=== PATIENT | male | born 1950 | race Caucasian/White ===

== ENCOUNTER 2017-09-07 08:39 | Emergency (ER) | payer OTHER ==
[2017-09-07 09:19] VITALS: BMI 26.3
[2017-09-07] MEDS ORDERED: ACETAMINOPHEN 325 MG TABLET (FP) PO ONE (10:50)
[2017-09-07] MEDS ORDERED: ACETAMINOPHEN 325 MG TABLET (FP) ONE (10:51)
--- NOTE | 2017-09-07 11:03 | PDOC ---
History of Present Illness - General Chief Complaint: SIRS, Suspected/Possible Stated Complaint: FLU LIKE SYMPTOMS Time Seen by Provider: 09/07/17 10:49 History Source: Patient Exam Limitations: No Limitations - History of Present Illness Initial Comments: CHIEF COMPLAINT: 67 y/o febrile, tachycardic male with PMH HTN c/o body aches, fever, nasal congestion and cough x 2 days. HISTORY OF PRESENT ILLNESS: The patient has been taking theraflu and advil with little relief, both of which he took yesterday. He hasn't taken any medication today. He also states he did not take his BP medication today. He denies earache, sore throat, n/v/d, CP, SOB, abd pain. Vital signs on arrival are notable for pulse of 111 secondary to temp of 101.8. BP elevated. REVIEW OF SYSTEMS: GENERAL/CONSTITUTIONAL: +fever to 101 and chills. +body aches. . No weakness. No weight change. HEAD, EYES, EARS, NOSE AND THROAT: +nasal congestion. No change in vision. No ear pain or discharge. No sore throat. CARDIOVASCULAR: No chest pain or shortness of breath. RESPIRATORY: +cough. No wheezing or hemoptysis. GASTROINTESTINAL: No abd pain, nausea, vomiting, diarrhea. GENITOURINARY: No dysuria, frequency, or change in urination. MUSCULOSKELETAL: No joint or muscle swelling or pain. No neck or back pain. SKIN: No rash or easy bruising. NEUROLOGIC: No headache, vertigo, loss of consciousness, or loss of sensation. PHYSICAL EXAM: GENERAL: The patient is awake, alert, and fully oriented, non toxic but ill appearing. HEAD: Normal with no signs of trauma. ENT: Pupils equal, round and reactive to light, extraocular movements intact, sclera anicteric, conjunctiva injected b/l. Neck supple. Nasal congestion. LUNGS: Clear to auscultation bilaterally. Normal excursion. No respiratory distress or use of accessory muscles. CV: RRR, S1/S2, no MRG. Cap refill < 2 sec. ABDOMEN: Soft, non-distended, non-tender even to deep palpation, no hepatomegaly or splenomegaly, no masses. EXTREMITIES: Normal range of motion, no edema. NEUROLOGICAL: Normal speech, normal gait. CN II-XII grossly intact. PSYCH: Normal mood, normal affect. SKIN: Warm to touch. Warm, dry, normal turgor, no rashes or lesions noted. Past History - Past Medical History Allergies/Adverse Reactions: Allergies Allergy/AdvReac Type Severity Reaction Status Date / Time hydrocodone Allergy Verified 03/24/16 11:32 morphine Allergy Rash Verified 03/24/16 11:32 Home Medications: Ambulatory Orders Amlodipine Besylate [Norvasc -] 10 mg PO DAILY 03/24/16 Diazepam [Valium] 2 mg PO TID PRN #10 tablet MDD 3 03/24/16 Tramadol HCl 50 mg PO BID PRN #10 tablet MDD 2 03/24/16 Oseltamivir Phosphate [Tamiflu -] 75 mg PO BID #10 capsule 09/07/17 COPD: No HTN: Yes Hypercholesterolemia: Yes Kidney Stones: Yes - Surgical History Abdominal Surgery: Yes (ABD STOMACH TUMOR) - Suicide/Smoking/Psychosocial Hx Smoking Status: Yes Smoking History: Former smoker Have you smoked in the past 12 months: No Number of Cigarettes Smoked Daily: 0 If you are a former smoker, when did you quit?: 35 YRS AGO Information on smoking cessation initiated: No Hx Alcohol Use: No Drug/Substance Use Hx: No Substance Use Type: None *Physical Exam - Vital Signs Last Vital Signs Temp Pulse Resp BP Pulse Ox 101.8 F H 111 H 20 153/101 97 09/07/17 09:17 09/07/17 09:17 09/07/17 09:17 09/07/17 09:17 09/07/17 09:17 ED Treatment Course - Medications Given in the ED: ED Medications Discontinued Medications Generic Name Dose Route Start Last Admin Trade Name Willa PRN Reason Stop Dose Admin Acetaminophen 975 mg 09/07/17 10:50 09/07/17 10:52 Tylenol - PO 09/07/17 10:51 975 mg ONCE ONE Administration Medical Decision Making - Medical Decision Making A/P: 67 y/o male with symptoms of the flu. Plan is as follows: 1. PO tylenol 2. Influenza Influenza A - positive The patient was given his results. Will send rx for tamiflu. Vital signs improved. Instructed him to take 650mg of tylenol every 4 hours for fever, drink plenty of fluids, get lots of rest and return to the ER with any worsening or concerning symptoms. Patient was also instructed to take his BP medication when he gets home. The patient verbalizes understanding of all instructions, has no further questions and is awaiting discharge. *DC/Admit/Observation/Transfer Diagnosis at time of Disposition: Influenza A - Discharge Dispostion Disposition: HOME Condition at time of disposition: Improved - Prescriptions Prescriptions: Oseltamivir Phosphate [Tamiflu -] 75 mg PO BID #10 capsule - Referrals Referrals: Ponce Steve MD [Primary Care Provider] - Call tomorrow - Patient Instructions Printed Discharge Instructions: DI for Influenza -- Adult Additional Instructions: Discharge Instructions: -You have the flu -A prescription has been called to your pharmacy -Please take 650mg of over the counter Tylenol every 4 hours for fever -Drink plenty of liquids -Get lots of rest -Return to the ER with any worsening or concerning symptoms Instrucciones de descarga: -Usted tiene la gripe -Zahraa receta tolbert sido llamada a villa farmacia - Nolic 650 mg de Tylenol sin receta cada 4 horas para la fiebre -Judy muchos lquidos -Descansa mucho -Volver a la pawel de urgencias con cualquier empeoramiento o sntomas - Post Discharge Activity
[2017-09-07 11:44] VITALS: BP 120/86; PULSE 108; TEMP 100
== END 2017-09-07 11:44 | disposition home or self-care (01) ==
LOC: JER 08:39 → JERFT 08:39
DX: J09.X2 Influenza due to identified novel influenza A virus with other respiratory manifestations (principal)
CPT/HCPCS: 87804; 99281-25

== ENCOUNTER 2019-09-20 11:06 | Emergency (ER) | payer OTHER ==
[2019-09-20 11:33] VITALS: TEMP 98.3; BMI 26.6
--- NOTE | 2019-09-20 11:49 | PDOC ---
History of Present Illness - General Chief Complaint: Ingestion Stated Complaint: INGESTION/ANTI FREEZE Time Seen by Provider: 09/20/19 11:27 History Source: Patient Exam Limitations: No Limitations - History of Present Illness Initial Comments: 09/20/19 11:47 Bryson Matson is a 69M with PMH HTN, benign stomach tumor resection presenting with accidental anti-freeze ingestion. Presents with at bedside. Reports that he has two containers of antifreeze at home for some reason, one filled with water and one filled with 50/50 [employer] antifreeze, and these are located relatively close to each other. Today mistakenly took a swig from the antifreeze container, says about a shot glass worth, and swallowed it completely. Tried to make himself vomit but was unsuccessful, drank a few glasses of water without issue. Currently says that his throat hurts a little, but is able to speak and swallow without issues, denies vision changes. No other complaints. Denies history of renal or cardiac disease, no other PMH other than HTN. Denies SI/HI, purely accidental ingestion. Past History - Past Medical History Allergies/Adverse Reactions: Allergies Allergy/AdvReac Type Severity Reaction Status Date / Time hydrocodone Allergy Verified 09/20/19 11:09 morphine Allergy Rash Verified 09/20/19 11:09 Home Medications: Ambulatory Orders Unobtainable 09/20/19 COPD: No HTN: Yes Hypercholesterolemia: Yes Kidney Stones: Yes - Surgical History Abdominal Surgery: Yes (ABD STOMACH TUMOR) - Psycho Social/Smoking Cessation Hx Smoking Status: Yes Smoking History: Unknown if ever smoked Have you smoked in the past 12 months: No Number of Cigarettes Smoked Daily: 0 If you are a former smoker, when did you quit?: 35 YRS AGO Hx Alcohol Use: No Drug/Substance Use Hx: No Substance Use Type: None Review of Systems - Review of Systems Able to Perform ROS?: Yes Constitutional: No: Chills, Fever HEENTM: Yes: Throat Pain. No: Eye Pain, Blurred Vision, Nose Pain, Throat Swelling, Mouth Pain, Difficulty Swallowing, Mouth Swelling Respiratory: No: Cough, Shortness of Breath, Productive cough, Hemoptysis Cardiac (ROS): No: Chest Pain, Edema, Irregular Heart Rate, Lightheadedness, Palpitations, Syncope, Chest Tightness ABD/GI: No: Constipated, Diarrhea, Difficulty Swallowing, Nausea, Poor Appetite , Poor Fluid Intake, Vomiting : No: Burning, Dysuria, Discharge, Frequency, Flank Pain, Hematuria, Incontinence, Pain Musculoskeletal: No: Symptoms Reported Integumentary: No: Symptoms Reported Neurological: No: Symptoms reported Endocrine: No: Symptoms Reported Hematologic/Lymphatic: No: Symptoms Reported All Other Systems: Reviewed and Negative *Physical Exam - Vital Signs Last Vital Signs Temp Pulse Resp BP Pulse Ox 98.3 F 72 18 151/86 96 09/20/19 11:15 09/20/19 11:15 09/20/19 11:15 09/20/19 11:15 09/20/19 11:15 - Physical Exam General Appearance: Yes: Nourished, Appropriately Dressed. No: Apparent Distress, Alcohol on Breath, Intoxicated HEENT: positive: EOMI, TERRENCE, Normal Voice, Symmetrical, Pharynx Normal, Hearing Grossly Normal, Other (oropharynx moist and without mucosal lawson or oral lesions, airway patent). negative: Scleral Icterus (R), Scleral Icterus (L), Muffled/Hoarse voice, Pharyngeal Erythema, Tonsillar Exudate, Tonsillar Erythema Neck: positive: Tender (L anterior neck), Trachea midline, Normal Thyroid, Supple. negative: Rigid, Decreased range of motion, Lymphadenopathy (R), Lymphadenopathy (L), Tender lateral, Tender midline Respiratory/Chest: positive: Lungs Clear, Normal Breath Sounds. negative: Chest Tender, Respiratory Distress, Accessory Muscle Use, Labored Respiration, Crackles, Rales, Rhonchi, Stridor, Wheezing Cardiovascular: positive: Regular Rhythm, Regular Rate. negative: Murmur Gastrointestinal/Abdominal: positive: Normal Bowel Sounds, Flat, Soft. negative : Tender, Organomegaly, Pulsatile Mass, Guarding, Rebound Musculoskeletal: positive: Normal Inspection. negative: CVA Tenderness, Decreased Range of Motion, Vertebral Tenderness Extremity: positive: Normal Capillary Refill, Normal Inspection, Normal Range of Motion, Pelvis Stable. negative: Tender Integumentary: positive: Normal Color, Dry, Warm Neurologic: positive: grinder lap II-XII NML intact, Fully Oriented, Alert, Normal Mood/ Affect, Normal Response, Motor Strength 5/5. negative: Sensory Deficit ED Treatment Course - LABORATORY CBC & Chemistry Diagram: 09/20/19 17:00 09/20/19 17:00 Medical Decision Making - Medical Decision Making 09/20/19 12:56 Patient has PMH HTN presenting with accidental antifreeze ingestion. Poison Control called by triage nurse Janes, recommend 6-8 hours observation with labs , Ca, VBG, no restrictions on PO intake. Patient airway patent, low suspicion of airway compromise. VS stable. - CBC for eval infection - CMP for eval lytes, Cr, Ca - VBG - UA for eval urine Giving water for oral hydration, tolerating well. 09/20/19 16:02 Labs notable for: - CMP WNL - CBC WNL - UA 2+ blood, low concern for renal damage but noted, can f/u urology and PMD Per Poison Control recommendation, will observe until 5PM at the 6 hour rush. 09/20/19 18:40 Repeat labs ordered: - CMP WNL, no AGAP - CBC WNL - VBG pH 7.42, no acidosis - serum osm 304, gap 7 Stable for be discharged home with PMD f/u. Discharge - Discharge Information Problems reviewed: Yes Clinical Impression/Diagnosis: Antifreeze poisoning Qualifiers: Encounter type: initial encounter Injury intent: accidental or unintentional Qualified Code(s): T65.91XA - Toxic effect of unspecified substance, accidental (unintentional), initial encounter Condition: Stable Disposition: HOME - Follow up/Referral Referrals: Ponce Steve MD [Primary Care Provider] - Phillip Engel MD [Staff Physician] - - Patient Discharge Instructions Patient Printed Discharge Instructions: DI for Accidental Ingestion -- Adult Additional Instructions: Today you were evaluated for accidentally ingesting antifreeze. We have observed you for 6 hours without incident. Your labs and urine do now show any disease as a result of the ingestion. At home, do not drink any more antifreeze. Follow-up with your primary doctor in the next 3 days for further care. Your urine shows some blood even though you have no symptoms, please see your primary doctor and also a referral to a urologist has been given. If you experience changes to your vision, have new back pain, feel weak, have pain in your throat or have any other new or concerning symptoms, please return to the emergency room. - Post Discharge Activity
[2019-09-20 12:09] LABS: BASO % 1.2 % (0-2.0); EOS % 1.5 % (0-4.5); HEMATOCRIT 46.7 % (35.4-49); HEMOGLOBIN 15.6 GM/dL (11.7-16.9); LYMPH % 29.6 % (8-40); MCH 30.7 pg (25.7-33.7); MCHC 33.4 g/dl (32.0-35.9); MEAN PLT VOLUME 8.9 fl (7.5-11.1); MONO % 6.4 % (3.8-10.2); NEUT % 61.3 % (42.8-82.8); PLATELET COUNT 235 K/MM3 (134-434); RBC 5.07 M/mm3 (4.00-5.60); RDW 14.3 % (11.9-15.9); WHITE BLOOD COUNT 4.9 K/mm3 (4.0-10.0)
--- NOTE | 2019-09-20 12:34 | PDOC ---
Attending Attestation - Resident Resident Name: Jacob Arciniega - ED Attending Attestation I have performed the following: I have examined & evaluated the patient, The case was reviewed & discussed with the resident, I agree w/resident's findings & plan, Exceptions are as noted - HPI HPI: 09/20/19 12:26 69y M hx of htn presents with accidental ingestion of antifreeze, patient took an accidental slip from water that was an antifreeze bottle. Patient complained of a bit of tingling in his lips and mouth after ingestion however he denies any nausea, vomiting, abdominal pain. Patient states this is an accidental ingestion denies any SI. He states he drank a lot of water afterwards to see if it would help. GENERAL: The patient is awake, alert, and fully oriented, Nontoxic - in no acute distress. HEAD: Normocephalic, atraumatic. EYES: extraocular movements intact, sclera anicteric, conjunctiva clear. ENT: Normal voice, Moist mucous membranes. NECK: Normal range of motion, supple LUNGS: Breath sounds equal, clear to auscultation bilaterally. No wheezes, no rhonchi, no rales. HEART: Regular rate and rhythm, normal S1 and S2 without murmur, rub or gallop. ABDOMEN: Soft, nontender, No guarding, no rebound. No CVA tenderness EXTREMITIES: Normal range of motion, no edema. NEUROLOGICAL: No facial assymetry, Normal speech, PSYCH: Normal mood, normal affect. SKIN: Warm, Dry, normal turgor, Assessment and plan: accidental ingestion of small amount of antifreeze ( mouthful) Will obtain lab work to rule out acidosis, will continue to observe. Case was discussed with poison control 09/20/19 17:26 pt feeling asymptomatic case dw poisons, requested repeat labs Patient also noted to have hematuria on his urine, will have the patient follow this up as an outpatient after labs, anticipate dc - Physicial Exam PE: 09/23/19 09:26 see abo e - Medical Decision Making 09/23/19 09:26 see above
[2019-09-20 12:36] LABS: EPI CELLS 0.5 /HPF (0-5/HPF); HYALINE CASTS 0 /lpf (0-8); URINE APPEARANCE CLEAR; URINE BACTERIA 1.7 /hpf (NEGATIVE); URINE BILIRUBIN NEGATIVE (NEGATIVE); URINE COLOR YELLOW; URINE GLUCOSE (UA) NEGATIVE (NEGATIVE); URINE KETONE NEGATIVE (NEGATIVE); URINE LEUK ESTERASE NEGATIVE (NEGATIVE); URINE NITRITE NEGATIVE (NEGATIVE); URINE PROTEIN TRACE (NEGATIVE); URINE RBC 21 /hpf (0-4); URINE WBC 2 /hpf (0-5)
[2019-09-20 12:44] LABS: ALBUMIN 4.3 g/dl (3.4-5.0); BILIRUBIN,TOTAL 0.6 mg/dL (0.2-1); CALCIUM 9.2 mg/dL (8.5-10.1); MAGNESIUM 2.2 mg/dL (1.8-2.4); POTASSIUM 3.7 mmol/L (3.5-5.1); TOT PROT 7.3 g/dl (6.4-8.2)
[2019-09-20 12:53] LABS: VENOUS PC02 46.5 mmHg (38-52); VENOUS PH 7.42 (7.31-7.41); VENOUS PO2 50.4 mmHg (28-48)
[2019-09-20 17:32] LABS: VENOUS PC02 48.9 mmHg (38-52); VENOUS PH 7.42 (7.31-7.41); VENOUS PO2 65.2 mmHg (28-48)
[2019-09-20 17:34] LABS: BASO % 1.1 % (0-2.0); EOS % 3.3 % (0-4.5); HEMATOCRIT 44.2 % (35.4-49); HEMOGLOBIN 14.6 GM/dL (11.7-16.9); LYMPH % 33.8 % (8-40); MCH 30.6 pg (25.7-33.7); MEAN CELL VOLUME 92.8 fl (80-96); MEAN PLT VOLUME 9.1 fl (7.5-11.1); MONO % 8.5 % (3.8-10.2); NEUT % 53.3 % (42.8-82.8); PLATELET COUNT 214 K/MM3 (134-434); RBC 4.76 M/mm3 (4.00-5.60); RDW 14.3 % (11.9-15.9); WHITE BLOOD COUNT 6.5 K/mm3 (4.0-10.0)
[2019-09-20 18:25] LABS: ALBUMIN 3.9 g/dl (3.4-5.0); BILIRUBIN,TOTAL 0.6 mg/dL (0.2-1); BLOOD UREA NITROGEN 16.6 mg/dL (7-18); CALCIUM 9.3 mg/dL (8.5-10.1); TOT PROT 6.6 g/dl (6.4-8.2)
[2019-09-20 19:27] VITALS: BP 140/67; PULSE 78
== END 2019-09-20 19:28 | disposition home or self-care (01) ==
LOC: JER 11:06
DX: T51.8X1A Toxic effect of other alcohols, accidental (unintentional), initial encounter (principal); T51.1X1A Toxic effect of methanol, accidental (unintentional), initial encounter; R07.0 Pain in throat; Y92.038 Other place in apartment as the place of occurrence of the external cause; I10 Essential (primary) hypertension; Z88.5 Allergy status to narcotic agent
CPT/HCPCS: 36415; 80053; 81003; 82803; 83735; 83930; 84100; 85025; 87086; 99284-25

== ENCOUNTER 2021-07-16 12:45 | Emergency (ER) | payer OTHER ==
[2021-07-16 13:00] VITALS: BMI 26.3
[2021-07-16] MEDS ORDERED: SODIUM CHLORIDE 0.9% 500 ML INFUS.BAG IV ONE (13:31)
[2021-07-16 14:36] LABS: BASO % 0.8 % (0-2.0); EOS % 2.3 % (0-4.5); HEMATOCRIT 43.6 % (35.4-49); HEMOGLOBIN 14.7 GM/dL (11.7-16.9); LYMPH % 18.6 % (8-40); MCHC 33.6 g/dl (32.0-35.9); MEAN CELL VOLUME 92.2 fl (80-96); MEAN PLT VOLUME 8.7 fl (7.5-11.1); MONO % 5.9 % (3.8-10.2); NEUT % 72.4 % (42.8-82.8); PLATELET COUNT 205 10^3/uL (134-434); RBC 4.73 M/mm3 (4.00-5.60); RDW 14.8 % (11.9-15.9); WHITE BLOOD COUNT 8.5 K/mm3 (4.0-10.0)
[2021-07-16] MEDS ORDERED: ACETAMINOPHEN 1000 MG/100 ML VIAL IVPB ONE (14:37)
[2021-07-16] MEDS ORDERED: ACETAMINOPHEN INJECTION 100 ML IVPB ONE (14:51)
[2021-07-16 15:03] LABS: EPI CELLS 5 /uL (0-25.1); HYALINE CASTS 1 /uL (0-3.1); PH,URINE 6.5 (5.0-8.0); URINE APPEARANCE TURBID; URINE BACTERIA 2 /uL (0-1359); URINE BILIRUBIN NEGATIVE (NEGATIVE); URINE COLOR RED; URINE GLUCOSE (UA) NEGATIVE (NEGATIVE); URINE KETONE NEGATIVE (NEGATIVE); URINE LEUK ESTERASE 1+ (NEGATIVE); URINE NITRITE NEGATIVE (NEGATIVE); URINE PROTEIN 1+ (NEGATIVE); URINE RBC 18313 /uL (0-23.9); URINE UROBILINOGEN 0.2 mg/dL (0.2-1.0); URINE WBC 81 /uL (0-25.8)
[2021-07-16 15:13] LABS: CALCIUM 9.2 mg/dL (8.5-10.1)
[2021-07-16 15:14] LABS: ALBUMIN 4.2 g/dl (3.4-5.0); BLOOD UREA NITROGEN 19.5 mg/dL (7-18); MAGNESIUM 2.2 mg/dL (1.8-2.4)
[2021-07-16 15:17] LABS: CREATININE 0.9 mg/dL (0.55-1.3)
[2021-07-16 15:18] LABS: BILIRUBIN,TOTAL 0.6 mg/dL (0.2-1); TOT PROT 7.4 g/dl (6.4-8.2)
[2021-07-16] MEDS ORDERED: CEFTRIAXONE 1,000 MG in DEXTROSE 5%-WATER - 50 ML IVPB ONE (15:53)
[2021-07-16] MEDS ORDERED: CEFTRIAXONE 1 GM/50 ML BAG ONE (16:50)
[2021-07-16 17:44] VITALS: BP 130/71; PULSE 67; TEMP 98.2
== END 2021-07-16 18:39 | disposition home or self-care (01) ==
LOC: JER 12:45
PROC: 3E0333Z Introduction of Anti-inflammatory into Peripheral Vein, Percutaneous Approach (ICD-10-PCS; principal; 2021-07-16)
PROC: 3E03329 Introduction of Other Anti-infective into Peripheral Vein, Percutaneous Approach (ICD-10-PCS; 2021-07-16)
DX: N30.91 Cystitis, unspecified with hematuria (principal)
CPT/HCPCS: 36415; 74177-TC; 80053; 81003; 83735; 85025; 87086; 99285-25; J0131; Q9967

== ENCOUNTER 2022-06-07 02:17 | Emergency (ER) | payer OTHER ==
[2022-06-07 02:32] VITALS: BP 172/96; PULSE 77; RESP 18; TEMP 98.1; BMI 27.8
[2022-06-07] MEDS ORDERED: TRANEXAMIC ACID 1000 MG/10 ML VIAL IVPUSH ONE (03:37)
[2022-06-07] MEDS ORDERED: TRANEXAMIC ACID 1000 MG/10 ML VIAL ONE (03:38)
[2022-06-07 04:46] LABS: EOS % 6.6 % (0-4.5); HEMATOCRIT 45.3 % (35.4-49); HEMOGLOBIN 15.5 GM/dL (11.7-16.9); LYMPH % 30.6 % (8-40); MCH 31.4 pg (25.7-33.7); MCHC 34.2 g/dl (32.0-35.9); MEAN CELL VOLUME 91.7 fl (80-96); MEAN PLT VOLUME 8.5 fl (7.5-11.1); MONO % 7.9 % (3.8-10.2); NEUT % 53.9 % (42.8-82.8); PLATELET COUNT 220 10^3/uL (134-434); RBC 4.94 M/mm3 (4.00-5.60); RDW 14.9 % (11.9-15.9)
== END 2022-06-07 05:19 | disposition home or self-care (01) ==
LOC: JER 02:17
PROC: 3E033GC Introduction of Other Therapeutic Substance into Peripheral Vein, Percutaneous Approach (ICD-10-PCS; principal; 2022-06-07)
DX: S01.512A Laceration without foreign body of oral cavity, initial encounter (principal); W26.8XXA Contact with other sharp object(s), not elsewhere classified, initial encounter
CPT/HCPCS: 36415; 85025; 99284-25

== ENCOUNTER 2022-07-13 08:12 | Inpatient (IN) | payer OTHER ==
[2022-07-13 09:32] LABS: BASO % 0.8 % (0-2.0); EOS % 4.9 % (0-4.5); HEMATOCRIT 45.3 % (35.4-49); HEMOGLOBIN 14.9 GM/dL (11.7-16.9); LYMPH % 35.1 % (8-40); MCH 30.4 pg (25.7-33.7); MEAN CELL VOLUME 92.3 fl (80-96); MEAN PLT VOLUME 8.7 fl (7.5-11.1); MONO % 7.6 % (3.8-10.2); NEUT % 51.6 % (42.8-82.8); PLATELET COUNT 199 10^3/uL (134-434); RBC 4.91 M/mm3 (4.00-5.60); RDW 14.9 % (11.9-15.9); WHITE BLOOD COUNT 4.9 K/mm3 (4.0-10.0)
[2022-07-13 09:39] LABS: INR 1.02 (0.83-1.09); PROTHROMBIN TIME (PATIENT) 11.7 SEC (9.7-13.0)
[2022-07-13 09:42] LABS: ACTIVATED PTT 29.9 SECONDS (25.2-36.5)
[2022-07-13 09:56] LABS: ALBUMIN 3.8 g/dl (3.4-5.0); BLOOD UREA NITROGEN 16.1 mg/dL (7-18); CALCIUM 8.9 mg/dL (8.5-10.1)
[2022-07-13 09:59] LABS: CREATININE 0.9 mg/dL (0.55-1.3)
[2022-07-13 10:00] LABS: CHOLESTEROL 139 mg/dL (50-200)
[2022-07-13 10:01] LABS: BILIRUBIN,TOTAL 0.7 mg/dL (0.2-1); TOT PROT 6.5 g/dl (6.4-8.2)
[2022-07-13 10:02] LABS: LDL CHOLESTEROL (ONLY SJRH) 75 mg/dL (5-100); TRIGLYCERIDES 77 mg/dL (0-150)
[2022-07-13 10:04] LABS: HDL CHOLESTEROL 52 mg/dL (40-60)
[2022-07-13] MEDS ORDERED: METOCLOPRAMIDE HCL INJECTION 10 MG/2 ML VIAL IVPUSH ONE (10:30)
[2022-07-13] MEDS ORDERED: ACETAMINOPHEN 1000 MG/100 ML BAG IVPB ONE (10:31)
[2022-07-13] MEDS ORDERED: METOCLOPRAMIDE HCL INJECTION 10 MG/2 ML VIAL ONE (11:46)
[2022-07-13] MEDS ORDERED: ASPIRIN 325 MG TABLET ONE (11:46)
[2022-07-13] MEDS ORDERED: ACETAMINOPHEN INJECTION 100 ML IVPB ONE (11:46)
[2022-07-13] MEDS: ASPIRIN 325 MG TABLET PO SCH (11:56)
[2022-07-13 18:36] LABS: URINE APPEARANCE CLEAR; URINE BILIRUBIN NEGATIVE (NEGATIVE); URINE COLOR YELLOW; URINE GLUCOSE (UA) NEGATIVE (NEGATIVE)
[2022-07-13 18:37] LABS: URINE KETONE NEGATIVE (NEGATIVE); URINE LEUK ESTERASE NEGATIVE (NEGATIVE); URINE NITRITE NEGATIVE (NEGATIVE); URINE PROTEIN NEGATIVE (NEGATIVE); URINE UROBILINOGEN 0.2 mg/dL (0.2-1.0)
[2022-07-13 18:44] LABS: EPI CELLS 2 /uL (0-25.1); URINE BACTERIA 6 /uL (0-1359); URINE RBC 57 /uL (0-23.9); URINE WBC 2 /uL (0-25.8)
[2022-07-13] MEDS ORDERED: ATORVASTATIN CA 80 MG TABLET (FP) ONE (22:03)
[2022-07-13] MEDS: ATORVASTATIN CA 80 MG TABLET (FP) PO SCH (22:29)
[2022-07-13] MEDS ORDERED: VALSARTAN 40 MG TABLET PO ONE (23:34)
[2022-07-13] MEDS ORDERED: VALSARTAN 80 MG TABLET ONE (23:41)
[2022-07-14] MEDS ORDERED: amLODIPine BESYLATE 5 MG TABLET (FP) PO SCH (10:00)
[2022-07-14 10:03] LABS: CHOLESTEROL 153 mg/dL (50-200); TRIGLYCERIDES 82 mg/dL (0-150)
[2022-07-14 10:04] LABS: LDL CHOLESTEROL (ONLY SJRH) 85 mg/dL (5-100)
[2022-07-14 10:07] LABS: HDL CHOLESTEROL 55 mg/dL (40-60)
[2022-07-14] MEDS ORDERED: CLOPIDOGREL BISULFATE 75 MG TABLET (FP) ONE (10:43)
[2022-07-14] MEDS ORDERED: amLODIPine BESYLATE 10 MG TABLET (FP) ONE (10:43)
[2022-07-14] MEDS ORDERED: ASPIRIN 325 MG TABLET ONE (10:44)
[2022-07-14] MEDS ORDERED: HEPARIN NA (PORCINE) 5,000 UNITS/ML 1ML VIAL ONE (10:44)
[2022-07-14] MEDS: ASPIRIN 325 MG TABLET PO SCH (10:52)
[2022-07-14] MEDS: DUTASTERIDE 0.5 MG CAP (FP) PO SCH (10:53)
[2022-07-14] MEDS: CLOPIDOGREL BISULFATE 75 MG TABLET (FP) PO SCH (10:54)
[2022-07-14] MEDS: VALSARTAN 40 MG TABLET PO SCH (10:54)
[2022-07-14] MEDS: amLODIPine BESYLATE 10 MG TABLET (FP) PO SCH (10:54)
[2022-07-14] MEDS: HEPARIN NA (PORCINE) 5,000 UNITS/ML 1ML VIAL SQ SCH ×2 (10:55→22:31)
[2022-07-14] MEDS: ATORVASTATIN CA 80 MG TABLET (FP) PO SCH (22:31)
[2022-07-14 23:06] VITALS: BMI 27.5
[2022-07-15] MEDS: amLODIPine BESYLATE 10 MG TABLET (FP) PO SCH (09:37)
[2022-07-15] MEDS: ASPIRIN 325 MG TABLET PO SCH (09:37)
[2022-07-15] MEDS: CLOPIDOGREL BISULFATE 75 MG TABLET (FP) PO SCH (09:37)
[2022-07-15] MEDS: VALSARTAN 40 MG TABLET PO SCH (09:38)
[2022-07-15] MEDS: DUTASTERIDE 0.5 MG CAP (FP) PO SCH (09:38)
[2022-07-15] MEDS: HEPARIN NA (PORCINE) 5,000 UNITS/ML 1ML VIAL SQ SCH ×2 (09:38→21:44)
[2022-07-15] MEDS ORDERED: VALSARTAN 40 MG TABLET PO ONE (12:21)
[2022-07-15] MEDS ORDERED: ASPIRIN 81 MG CHEWABLE TABLETS PO SCH (12:22)
[2022-07-15 16:20] LABS: N-TERMINAL BNP 397.5 pg/ml (5-125)
[2022-07-15] MEDS: CHLORTHALIDONE 25 MG TABLET PO SCH (16:23)
[2022-07-15] MEDS: ATORVASTATIN CA 80 MG TABLET (FP) PO SCH (21:44)
[2022-07-16 03:45] VITALS: RESP 18
[2022-07-16] MEDS: DUTASTERIDE 0.5 MG CAP (FP) PO SCH (09:39)
[2022-07-16] MEDS: amLODIPine BESYLATE 10 MG TABLET (FP) PO SCH (09:39)
[2022-07-16] MEDS: CLOPIDOGREL BISULFATE 75 MG TABLET (FP) PO SCH (09:39)
[2022-07-16] MEDS: CHLORTHALIDONE 25 MG TABLET PO SCH (09:40)
[2022-07-16] MEDS: HEPARIN NA (PORCINE) 5,000 UNITS/ML 1ML VIAL SQ SCH (09:40)
[2022-07-16] MEDS ORDERED: VALSARTAN 80 MG TABLET PO SCH (10:00)
[2022-07-16 14:30] VITALS: BP 138/77; PULSE 61; TEMP 98.8
== END 2022-07-16 14:41 | disposition home or self-care (01) | DRG 65 ==
LOC: JER 08:12 → JERBED 09:56 → J4W 07-14 21:48
PROVIDERS: ADMIT Internal Medicine; ATTEND Internal Medicine
DX: I63.9 Cerebral infarction, unspecified (principal); I69.354 Hemiplegia and hemiparesis following cerebral infarction affecting left non-dominant side; I44.0 Atrioventricular block, first degree; N40.0 Benign prostatic hyperplasia without lower urinary tract symptoms; E78.00 Pure hypercholesterolemia, unspecified; I10 Essential (primary) hypertension; R29.707 NIHSS score 7; G43.909 Migraine, unspecified, not intractable, without status migrainosus; R20.2 Paresthesia of skin; H54.62 Unqualified visual loss, left eye, normal vision right eye; R77.8 Other specified abnormalities of plasma proteins; M79.602 Pain in left arm; R73.03 Prediabetes
CPT/HCPCS: 0241U-QW; 36415; 70450-TC; 70496-TC; 70498-TC; 70551-TC; 80053; 80061; 81003; 82550; 83036; 83700; 83880; 84443; 84484; 85025; 85610; 85651; 85730; 86140; 86850; 86900; 86901; 93005; 93010; 93306-TC; 93880-TC; 97116-GP; 97161-GP; 99285-25; J1644

== ENCOUNTER 2023-02-05 16:21 | Observation (INO) | payer OTHER ==
[2023-02-05 16:29] VITALS: BMI 27.8
[2023-02-05] MEDS ORDERED: SODIUM CHLORIDE 1,000 ML IV SCH (16:45)
[2023-02-05 18:04] LABS: BASO % 1.1 % (0-2.0); EOS % 4.7 % (0-4.5); HEMATOCRIT 41.8 % (35.4-49); HEMOGLOBIN 13.5 GM/dL (11.7-16.9); LYMPH % 28.8 % (8-40); MCH 29.6 pg (25.7-33.7); MCHC 32.3 g/dl (32.0-35.9); MEAN CELL VOLUME 91.6 fl (80-96); MEAN PLT VOLUME 9.7 fl (7.5-11.1); MONO % 6.2 % (3.8-10.2); NEUT % 59.2 % (42.8-82.8); PLATELET COUNT 220 10^3/uL (134-434); RBC 4.56 M/mm3 (4.00-5.60); RDW 14.8 % (11.9-15.9); WHITE BLOOD COUNT 5.7 K/mm3 (4.0-10.0)
[2023-02-05 18:08] LABS: EPI CELLS 1 /uL (0-25.1); HYALINE CASTS 0 /uL (0-3.1); URINE APPEARANCE CLEAR; URINE BACTERIA 5 /uL (0-1359); URINE BILIRUBIN NEGATIVE (NEGATIVE); URINE COLOR YELLOW; URINE GLUCOSE (UA) NEGATIVE (NEGATIVE); URINE KETONE NEGATIVE (NEGATIVE); URINE LEUK ESTERASE 1+ (NEGATIVE); URINE NITRITE NEGATIVE (NEGATIVE); URINE PROTEIN NEGATIVE (NEGATIVE); URINE RBC 95 /uL (0-23.9); URINE UROBILINOGEN 0.2 mg/dL (0.2-1.0); URINE WBC 22 /uL (0-25.8)
[2023-02-05 18:10] LABS: INR 0.99 (0.83-1.09); PROTHROMBIN TIME (PATIENT) 11.5 SEC (9.7-13.0)
[2023-02-05 18:13] LABS: ACTIVATED PTT 30.5 SECONDS (25.2-36.5)
[2023-02-05 18:26] LABS: CHLORIDE 105 mmol/L (98-107); POTASSIUM 3.7 mmol/L (3.5-5.1); SODIUM 141 mmol/L (136-145)
[2023-02-05 18:27] LABS: CALCIUM 8.9 mg/dL (8.5-10.1)
[2023-02-05 18:28] LABS: ALBUMIN 3.8 g/dl (3.4-5.0); ANION GAP 7 MMOL/L (8-16); CO2 30 mmol/L (21-32)
[2023-02-05 18:29] LABS: BLOOD UREA NITROGEN 17.2 mg/dL (7-18); GLUCOSE,RANDOM 178 mg/dL (74-106)
[2023-02-05 18:31] LABS: SGOT/AST 16 U/L (15-37); SGPT/ALT 36 U/L (13-61)
[2023-02-05 18:32] LABS: CHOLESTEROL 201 mg/dL (50-200)
[2023-02-05 18:33] LABS: TOT PROT 6.7 g/dl (6.4-8.2)
[2023-02-05 18:34] LABS: BILIRUBIN,TOTAL 0.4 mg/dL (0.2-1); LDL CHOLESTEROL (ONLY SJRH) 121 mg/dL (5-100)
[2023-02-05 18:35] LABS: ALK PHOS 67 U/L (45-117); HDL CHOLESTEROL 47 mg/dL (40-60)
[2023-02-05] MEDS ORDERED: ATORVASTATIN CA 80 MG TABLET (FP) PO ONE (23:42)
[2023-02-05] MEDS ORDERED: ASPIRIN 81 MG CHEWABLE TABLETS PO ONE (23:47)
[2023-02-05] MEDS ORDERED: CARVEDILOL 3.125 MG TABLET (FP) PO ONE (23:47)
[2023-02-05] MEDS ORDERED: LISINOPRIL 10 MG TABLET PO ONE (23:48)
[2023-02-06] MEDS ORDERED: CLOPIDOGREL BISULFATE 75 MG TABLET (FP) PO ONE (00:17)
[2023-02-06 07:03] VITALS: RESP 16
[2023-02-06 07:39] LABS: EOS % 5.5 % (0-4.5); HEMATOCRIT 45.1 % (35.4-49); HEMOGLOBIN 14.8 GM/dL (11.7-16.9); LYMPH % 28.1 % (8-40); MCH 30.1 pg (25.7-33.7); MCHC 32.8 g/dl (32.0-35.9); MEAN CELL VOLUME 91.7 fl (80-96); MEAN PLT VOLUME 9.1 fl (7.5-11.1); MONO % 8.1 % (3.8-10.2); NEUT % 57.3 % (42.8-82.8); PLATELET COUNT 233 10^3/uL (134-434); RBC 4.91 M/mm3 (4.00-5.60); RDW 15.3 % (11.9-15.9)
[2023-02-06 08:05] LABS: POTASSIUM 4.4 mmol/L (3.5-5.1)
[2023-02-06 08:08] LABS: CALCIUM 9.1 mg/dL (8.5-10.1)
[2023-02-06 08:11] LABS: ALBUMIN 3.8 g/dl (3.4-5.0); BLOOD UREA NITROGEN 13.6 mg/dL (7-18)
[2023-02-06 08:14] LABS: BILIRUBIN,TOTAL 0.9 mg/dL (0.2-1); TOT PROT 6.7 g/dl (6.4-8.2)
[2023-02-06] MEDS ORDERED: CARVEDILOL 3.125 MG TABLET (FP) PO SCH (10:00)
[2023-02-06] MEDS ORDERED: CEFTRIAXONE 1 GM in DEXTROSE 5%-WATER - 50 ML IVPB SCH (10:00)
[2023-02-06 16:22] VITALS: BP 128/76; PULSE 62; TEMP 98.4
[2023-02-06] MEDS ORDERED: ATORVASTATIN CA 80 MG TABLET (FP) PO SCH (22:00)
[2023-02-06] MEDS ORDERED: HEPARIN NA (PORCINE) 5,000 UNITS/ML 1ML VIAL SQ SCH (22:00)
[2023-02-07] MEDS ORDERED: ASPIRIN 81 MG CHEWABLE TABLETS PO SCH (10:00)
[2023-02-07] MEDS ORDERED: LISINOPRIL 10 MG TABLET PO SCH (10:00)
== END 2023-02-06 16:42 | disposition home or self-care (01) ==
LOC: JER 16:21 → JERBED 18:06 → J4S 02-06 01:03
PROVIDERS: ADMIT Internal Medicine; ATTEND Internal Medicine
DX: G45.9 Transient cerebral ischemic attack, unspecified (principal); I10 Essential (primary) hypertension; N40.0 Benign prostatic hyperplasia without lower urinary tract symptoms; E78.00 Pure hypercholesterolemia, unspecified; N20.0 Calculus of kidney; Z86.73 Personal history of transient ischemic attack (TIA), and cerebral infarction without residual deficits; Z87.891 Personal history of nicotine dependence; R20.2 Paresthesia of skin; R20.0 Anesthesia of skin; H53.9 Unspecified visual disturbance; G89.29 Other chronic pain; M54.9 Dorsalgia, unspecified; Z88.6 Allergy status to analgesic agent
CPT/HCPCS: 36415; 70450-TC; 70496-TC; 70498-TC; 70551-TC; 71045-TC-FY; 80053; 80061; 81003; 82550; 82962; 83036; 84436; 84443; 84484; 85025; 85610; 85730; 86850; 86900; 86901; 87086; 93005; 93010; 96365; 97116-GP; 97161-GP; 99285-25; G0378

== ENCOUNTER 2023-07-21 13:49 | Emergency (ER) | payer OTHER ==
[2023-07-21 14:02] VITALS: BP 165/80; PULSE 95; RESP 17; TEMP 99.8; BMI 26.3
[2023-07-21] MEDS ORDERED: KETOROLAC TROMETHAMINE 30 MG/1 ML VIAL IM ONE (15:39)
[2023-07-21] MEDS ORDERED: KETOROLAC TROMETHAMINE 30 MG/1 ML VIAL ONE (15:46)
== END 2023-07-21 19:08 | disposition home or self-care (01) ==
LOC: JER 13:49
PROC: 3E0233Z Introduction of Anti-inflammatory into Muscle, Percutaneous Approach (ICD-10-PCS; principal; 2023-07-21)
DX: M79.604 Pain in right leg (principal); R22.41 Localized swelling, mass and lump, right lower limb; L03.115 Cellulitis of right lower limb
CPT/HCPCS: 93970-TC; 99284-25

== ENCOUNTER 2024-02-27 08:12 | Emergency (ER) | payer OTHER ==
[2024-02-27 08:18] VITALS: BMI 27.3
[2024-02-27 09:24] LABS: HEMATOCRIT 45.7 % (35.4-49); HEMOGLOBIN 15.6 GM/dL (11.7-16.9); MCH 31.2 pg (25.7-33.7); MCHC 34.1 g/dl (32.0-35.9); MEAN CELL VOLUME 91.5 fl (80-96); MEAN PLT VOLUME 8.6 fl (7.5-11.1); PLATELET COUNT 211 10^3/uL (134-434); RDW 14.8 % (11.9-15.9); WHITE BLOOD COUNT 6.9 K/mm3 (4.0-10.0)
[2024-02-27] MEDS ORDERED: KETOROLAC TROMETHAMINE 15 MG/ML VIAL ONE (09:25)
[2024-02-27] MEDS ORDERED: METHOCARBAMOL 500 MG TABLET ONE (09:25)
[2024-02-27] MEDS: METHOCARBAMOL 500 MG TABLET PO ONE (09:31)
[2024-02-27] MEDS: KETOROLAC TROMETHAMINE 30 MG/1 ML VIAL IVPUSH ONE (09:31)
[2024-02-27 09:35] LABS: POTASSIUM 3.5 mmol/L (3.5-5.1)
[2024-02-27 09:37] LABS: CALCIUM 8.8 mg/dL (8.5-10.1)
[2024-02-27 09:38] LABS: ALBUMIN 3.9 g/dl (3.4-5.0); BLOOD UREA NITROGEN 19.2 mg/dL (7-18)
[2024-02-27 09:41] LABS: CREATININE 1.1 mg/dL (0.55-1.3)
[2024-02-27 09:42] LABS: TOT PROT 6.9 g/dl (6.4-8.2)
[2024-02-27 09:43] LABS: BILIRUBIN,TOTAL 0.7 mg/dL (0.2-1)
[2024-02-27 11:49] VITALS: BP 156/86; PULSE 77; RESP 20; TEMP 98.1
== END 2024-02-27 12:35 | disposition home or self-care (01) ==
LOC: JER 08:12
PROC: 3E0333Z Introduction of Anti-inflammatory into Peripheral Vein, Percutaneous Approach (ICD-10-PCS; principal; 2024-02-27)
DX: S16.1XXA Strain of muscle, fascia and tendon at neck level, initial encounter (principal); R51.9 Headache, unspecified; R00.2 Palpitations; X58.XXXA Exposure to other specified factors, initial encounter
CPT/HCPCS: 36415; 70450-TC; 80053; 81003; 83735; 84484; 85027; 93005; 93010; 96374; 99285-25

== ENCOUNTER 2024-06-05 10:05 | Emergency (ER) | payer OTHER ==
[2024-06-05 10:10] VITALS: BP 174/84; PULSE 87; RESP 16; TEMP 98.1; BMI 27.8
[2024-06-05] MEDS ORDERED: KETOROLAC TROMETHAMINE 30 MG/1 ML VIAL ONE (11:22)
[2024-06-05] MEDS ORDERED: predniSONE 20 MG TABLET (UD) ONE (11:22)
[2024-06-05] MEDS: predniSONE 20 MG TABLET (UD) PO ONE (12:00)
[2024-06-05] MEDS: KETOROLAC TROMETHAMINE 30 MG/1 ML VIAL IM ONE (12:00)
== END 2024-06-05 14:28 | disposition home or self-care (01) ==
LOC: JERFT 10:05
PROC: 3E0233Z Introduction of Anti-inflammatory into Muscle, Percutaneous Approach (ICD-10-PCS; principal; 2024-06-05)
DX: M25.571 Pain in right ankle and joints of right foot (principal)
CPT/HCPCS: 73610-TC-RT-FY; 96372; 99284-25

== ENCOUNTER 2024-06-20 05:15 | Day surgery (SDC) | payer OTHER ==
[2024-06-16 14:23] VITALS: BMI 24.7
[2024-06-20] MEDS: BUPIVACAINE HCL/PF 0.25% (2.5MG/ML) 10 ML VIAL IJ ONE
[2024-06-20] MEDS ORDERED: BACITRACIN ZINC 15 GM TUBE TOPICAL OINTMENT ONE (12:58)
[2024-06-20] MEDS ORDERED: BUPIVACAINE HCL/PF 0.25% (2.5MG/ML) 10 ML VIAL ONE (12:58)
[2024-06-20] MEDS ORDERED: PROPOFOL 20 ML ONE ×2 (13:34→14:05)
[2024-06-20] MEDS ORDERED: MIDAZOLAM HCL 2 MG/2 ML SINGLE DOSE VIAL ONE (13:34)
[2024-06-20] MEDS: ceFAZolin SODIUM 1 GM VIAL IVPB ONE ×2 (13:57)
[2024-06-20] MEDS: LACTATED RINGERS SOLUTION 1,000 ML IV SCH (14:40)
[2024-06-20 16:16] VITALS: RESP 16
[2024-06-20 17:09] VITALS: BP 140/70; PULSE 80; TEMP 98.4
== END 2024-06-20 17:10 | disposition home or self-care (01) ==
LOC: JASU-SURG 05:15
PROVIDERS: ATTEND Urology
PROC: 0VTTXZZ Resection of Prepuce, External Approach (ICD-10-PCS; principal; 2024-06-20 14:00)
DX: N47.1 Phimosis (principal)
CPT/HCPCS: 88304-TC; 94760

== ENCOUNTER 2024-06-21 17:04 | Emergency (ER) | payer OTHER ==
[2024-06-21 17:18] VITALS: BP 163/74; PULSE 78; RESP 16; TEMP 98.5; BMI 27.7
== END 2024-06-21 18:10 | disposition home or self-care (01) ==
LOC: JER 17:04
DX: S30.21XA Contusion of penis, initial encounter (principal); X58.XXXA Exposure to other specified factors, initial encounter; Z98.890 Other specified postprocedural states
CPT/HCPCS: 99283-25